=== PATIENT | female | born 1935 ===

== ENCOUNTER 2016-12-20 15:44 | Emergency (ER) | payer MEDICARE, MEDICAID ==
[2016-12-20 15:50] VITALS: BP 175/99; PULSE 70; RESP 16; TEMP 99.3; O2SAT 98
--- NOTE | 2016-12-20 16:22 | ED PDOC ---
HPI:Nausea, Vomiting, Diarrhea Time Seen by Provider: 12/20/16 16:10 Chief Complaint (Nursing): Abdominal Pain Chief Complaint (Provider): Diarrhea History Per: Patient History/Exam Limitations: no limitations Onset/Duration Of Symptoms: Hrs (morning prior to arrival ) Current Symptoms Are (Timing): Still Present Additional Complaint(s): Leigh Ann Fiore is an 81 year old female presenting to the ED for an evaluation of 10 episodes of diarrhea associated with nausea occurring since this morning. The patient denies vomiting, fever, or belly pains. PMD: Jovon Royal MD Past Medical History Reviewed: Historical Data, Nursing Documentation, Vital Signs Vital Signs: Last Vital Signs Temp 99.3 F 12/20/16 15:48 Pulse 70 12/20/16 15:48 Resp 16 12/20/16 15:48 BP 175/99 H 12/20/16 15:48 Pulse Ox 98 12/20/16 15:48 - Family History Family History: States: Unknown Family Hx - Home Medications Home Medications: Ambulatory Orders Medication Instructions Recorded Atropine/Diphenoxylate [Lonox 1 tab PO TID PRN #6 tab 12/20/16 0.025 MG-2.5 MG] - Allergies Allergies/Adverse Reactions: Allergies Allergy/AdvReac Type Severity Reaction Status Date / Time azithromycin Allergy RASH Verified 12/20/16 16:00 codeine Allergy RASH Verified 12/20/16 16:00 ibuprofen Allergy RASH Verified 12/20/16 16:00 iodine Allergy RASH Verified 12/20/16 16:00 metoprolol Allergy RASH Verified 12/20/16 16:00 moxifloxacin [From Avelox] Allergy RASH Verified 12/20/16 16:00 Penicillins Allergy RASH Verified 12/20/16 16:00 tramadol Allergy RASH Verified 12/20/16 16:00 Review of Systems ROS Statement: Except As Marked, All Systems Reviewed And Found Negative Constitutional: Negative for: Fever Gastrointestinal: Positive for: Nausea, Diarrhea. Negative for: Vomiting, Abdominal Pain Physical Exam - Reviewed Nursing Documentation Reviewed: Yes Vital Signs Reviewed: Yes - Physical Exam Appears: Positive for: Non-toxic, No Acute Distress Head Exam: Positive for: ATRAUMATIC, NORMOCEPHALIC Cardiovascular/Chest: Positive for: Regular Rate, Rhythm, Chest Non Tender. Negative for: Murmur Respiratory: Positive for: Normal Breath Sounds. Negative for: Respiratory Distress Gastrointestinal/Abdominal: Positive for: Normal Exam, Soft. Negative for: Tenderness, Distended, Guarding, Rebound Neurologic/Psych: Positive for: Alert, Oriented (x3). Negative for: Motor/ Sensory Deficits - Laboratory Results Result Diagrams: 12/20/16 17:31 12/20/16 17:31 - ECG O2 Sat by Pulse Oximetry: 98 (RA) Pulse Ox Interpretation: Normal Medical Decision Making Medical Decision Making: Time: 16:10 Impression: Diarrhea associated with nausea Plan: * ED EKG * CMP * CBC (with differential) * NS 1,000 ml IV 100 mls/hr * Stool Culture * Urinalysis * CT Abd & Pelvis w/o PO or IV contrast * Reevaluation Scribe Attestation: Documented by Sarahi Goins, acting as a scribe for Kaylie Herrera MD. Provider Scribe Attestation: All medical record entries made by the Scribe were at my direction and personally dictated by me. I have reviewed the chart and agree that the record accurately reflects my personal performance of the history, physical exam, medical decision making, and the department course for this patient. I have also personally directed, reviewed, and agree with the discharge instructions and disposition. Disposition - Clinical Impression Clinical Impression: Diarrhea - Disposition Referrals: Jovon Royal [Family Provider] - Condition: STABLE Additional Instructions: EAT PLENTY OF BANANAS. Prescriptions: Atropine/Diphenoxylate [Lonox 0.025 MG-2.5 MG] 1 tab PO TID PRN #6 tab PRN Reason: Diarrhea Instructions: Acute Diarrhea (ED) Forms: [employer] (Italian) Print Language: VENEZUELAN
[2016-12-20] MEDS ORDERED: Sodium Chloride 0.9% 1,000 ML IV STA (16:23)
--- NOTE | 2016-12-20 17:37 | CT ---
PROCEDURE: CT Abdomen and Pelvis without intravenous contrast HISTORY: Diarrhea COMPARISON: Comparison is made to the previous study dated 04/16/2012 TECHNIQUE: Axial and reformatted coronal and sagittal CT images of the abdomen and pelvis were obtained without IV or oral contrast administration.. Contrast Dose: 0 Radiation dose: Total exam DLP = 303.64 mGy-cm. This CT exam was performed using one or more of the following dose reduction techniques: Automated exposure control, adjustment of the mA and/or kV according to patient size, and/or use of iterative reconstruction technique. FINDINGS: LOWER THORAX: No evidence of acute pathology. LIVER: Unremarkable. No gross lesion or ductal dilatation. GALLBLADDER AND BILE DUCTS: The gallbladder is not visualized. The common bile duct is dilated could be due to prior cholecystectomy. PANCREAS: Unremarkable. No gross lesion or ductal dilatation. SPLEEN: Unremarkable. ADRENALS: Unremarkable. No mass. KIDNEYS AND URETERS: Unremarkable. No hydronephrosis. No solid mass. VASCULATURE: Unremarkable. No aortic aneurysm. BOWEL: Diffuse colonic diverticulosis more prominent at the sigmoid colon without evidence of diverticulitis. Suboptimal assessment of the GI system without oral contrast. No definite evidence of colitis or enteritis. No evidence of bowel obstruction. APPENDIX: Unremarkable. Normal appendix. PERITONEUM: Unremarkable. No free fluid. No free air. LYMPH NODES: Unremarkable. No enlarged lymph nodes. BLADDER: Unremarkable. REPRODUCTIVE: The uterus is mildly enlarged for the patient's age. There is heterogeneous low-attenuation in the endometrial cavity. 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 OTHER FINDINGS: None. IMPRESSION: No evidence of acute pathology in the abdomen and pelvis. Suboptimal assessment without IV or oral contrast administration. Colonic diverticulosis without evidence of diverticulitis or colitis. Heterogeneous prominent size uterus.
[2016-12-20 17:38] LABS: BASO % 0.4 % (0.0-2.0); EOS % 0.2 % (0.0-4.0); HEMATOCRIT 37.2 % (34.0-47.0); LYMPH # 1.5 K/uL (1.0-4.3); LYMPH % 15.5 % (20.0-40.0); MEAN CELL VOLUME 88.1 fl (81.0-99.0); MEAN CORPUSCULAR HEMOGLOBIN 29.7 pg (27.0-31.0); MEAN CORPUSCULAR HGB CONC 33.7 g/dL (33.0-37.0); MEAN PLATELET VOLUME 8.9 fl (7.2-11.7); MONO # 0.7 K/uL (0.0-0.8); MONO % 7.5 % (0.0-10.0); NEUT # 7.5 K/uL (1.8-7.0); NEUT % 76.4 % (50.0-75.0); NRBC % 0.1 % (0.0-0.0); RED CELL DISTRIBUTION WIDTH 13.2 % (11.5-14.5); WHITE BLOOD COUNT 9.8 K/uL (4.8-10.8)
[2016-12-20 17:50] LABS: ALB/GLOB RATIO 1.2 (1.0-2.1); ALKALINE PHOSPHATASE 99 U/L (38-126); ALT/SGPT 38 U/L (9-52); AST/SGOT 29 U/L (14-36); BILIRUBIN,TOTAL 0.6 mg/dl (0.2-1.3); BLOOD UREA NITROGEN 23 mg/dl (7-17); CALCIUM 10.3 mg/dL (8.4-10.2); CARBON DIOXIDE 29 mmol/L (22-30); CHLORIDE 100 mmol/L (98-107); GFR AFRICAN-AMERICAN > 60; GLUCOSE,RANDOM 114 mg/dL (65-105); SODIUM 141 mmol/l (132-148); TOTAL PROTEIN 8.4 G/DL (6.3-8.2)
[2016-12-20 17:55] LABS: POTASSIUM 3.3 MMOL/L (3.6-5.0)
[2016-12-20] MEDS ORDERED: Potassium Chloride 20 mEq ER Tab PO STA (17:57)
[2016-12-20] MEDS ORDERED: Potassium Chloride 20 mEq ER Tab PO ONE (18:55)
[2016-12-20 19:11] LABS: URINE BILIRUBIN NEGATIVE (NEGATIVE); URINE BLOOD MODERATE (NEGATIVE); URINE COLOR YELLOW (YELLOW); URINE GLUCOSE (UA) NEG (Normal); URINE KETONE NEGATIVE (NEGATIVE); URINE LEUKOCYTE ESTERASE NEG Leu/uL (Negative); URINE PROTEIN NEGATIVE (NEGATIVE); URINE UROBILINOGEN 0.2-1.0 mg/dL (0.2-1.0)
[2016-12-20 19:28] LABS: RBC URINE 22 /hpf (0-3); WBC URINE 3 /hpf (0-5)
--- NOTE | 2016-12-21 07:30 | CARD ---
APPROVED REPORT EKG Measurement Heart [id number] <Conclusion> Normal sinus rhythm Normal ECG
== END 2016-12-20 20:05 | disposition home or self-care (01) ==
LOC: H.ER 15:44
DX: R19.7 Diarrhea, unspecified (principal); R11.2 Nausea with vomiting, unspecified
CPT/HCPCS: 74176; 80053; 81003; 85025; 87045; 93005; 99283; J7040